=== PATIENT | male | born 1955 | race Caucasian/White ===

== ENCOUNTER 2021-08-22 13:56 | Inpatient (IN) | payer MEDICARE, OTHER ==
[~2021-08-22] VITALS: Ht 180.3 cm; Wt 159.7 kg
[2021-08-22] MEDS ORDERED: ACETAMINOPHEN 325 MG TABLET PO ONE (14:15)
[2021-08-22] MEDS ORDERED: VANCOMYCIN IV 1,000 MG in IV DEXTROSE 5% 250 ML IV ONE (14:15)
[2021-08-22] MEDS ORDERED: CEFEPIME HCL 1 G in IV DEXTROSE 5% 50 ML IV ONE (14:15)
[2021-08-22] MEDS ORDERED: IV NORMAL SALINE 1000 ML BAG IV ONE ×2 (14:15→15:30)
[2021-08-22] MEDS ORDERED: CEFEPIME HCL 1 G VIAL ONE (14:38)
[2021-08-22] MEDS ORDERED: ACETAMINOPHEN 325 MG TABLET ONE (14:38)
[2021-08-22] MEDS ORDERED: VANCOMYCIN IV 200 ML ONE (14:39)
[2021-08-22 14:43] LABS: HEMATOCRIT 44.1 % (36.7-47.1); MEAN CORPUSCULAR HEMOGLOBIN 30.4 uug (23.8-33.4); MEAN CORPUSCULAR VOLUME 90.5 fL (73.0-96.2); PLATELET COUNT (AUTO) 162 K/uL (152-348)
--- NOTE | 2021-08-22 14:46 | NUR ---
PT TO CT VIA AKIRA COHEN NOTED.
[2021-08-22 14:47] LABS: POTASSIUM 3.7 mmol/L (3.5-5.1)
[2021-08-22 14:53] LABS: BILIRUBIN,DIRECT 0.2 mg/dL (0.0-0.2); BILIRUBIN,TOTAL 0.8 mg/dL (0.2-1.0); TOTAL PROTEIN, SERUM 7.3 g/dL (6.4-8.2)
[2021-08-22 15:20] LABS: *BILIRUBIN,URIN NEGATIVE (NEGATIVE); *BLOOD, URINE 2+ (NEGATIVE); *COLOR,URINE YELLOW (YELLOW); *KETONES,URINE 2+ (NEGATIVE); LEUKOCYTE ESTERASE ,URINE NEGATIVE (NEGATIVE); NITRITE, URINE NEGATIVE (NEGATIVE)
[2021-08-22 15:21] LABS: UGLUCOSE 3+ (NEGATIVE)
[2021-08-22] MEDS ORDERED: TELM40TA2 PO (15:22)
[2021-08-22] MEDS ORDERED: INSU100I26 SQ (15:22)
[2021-08-22] MEDS ORDERED: METF-442 PO (15:22)
[2021-08-22] MEDS ORDERED: IRBE75TA11 PO (15:22)
[2021-08-22] MEDS ORDERED: INSU100I34 SQ (15:22)
[2021-08-22] MEDS ORDERED: ATOR20TA PO (15:22)
[2021-08-22] MEDS ORDERED: HYDR25TA4 PO (15:22)
[2021-08-22] MEDS ORDERED: GLIP5TAB13 PO (15:22)
[2021-08-22] MEDS ORDERED: ERTU5TAB PO (15:22)
[2021-08-22 15:25] LABS: *CLARITY,URINE HAZY (CLEAR); RBC,URINE 20-50 /HPF (0-3)
[2021-08-22 15:28] LABS: BACTERIA,URINE FEW /HPF (NONE SEEN); SQUAMOUS EPITHELIAL CELL,UR FEW /HPF (NONE SEEN); WBC,URINE 50-80 /HPF (0-3); YEAST,URINE FEW /HPF (NONE SEEN)
--- NOTE | 2021-08-22 16:00 | NUR ---
spoke with , pt has been accpeted for tele admission. Called for tele bed assignment, charge nurse to call back.
--- NOTE | 2021-08-22 18:00 | NUR ---
Pt sleeping with NAD noted. SBAR report given to CRISTOPHER Harrell.
--- NOTE | 2021-08-22 19:28 | NUR ---
Transfered to 3rd floor via gurny with no distress.
[2021-08-22] MEDS ORDERED: TEMAZEPAM 15 MG CAPSULE PO PRN (19:30)
[2021-08-22] MEDS ORDERED: MAGNESIUM HYDROXIDE 30 ML LIQUID UDC PO PRN (19:30)
[2021-08-22] MEDS ORDERED: ALBUTEROL SULFATE 2.5 MG/ 0.5 ML NEBU NEB PRN (19:30)
[2021-08-22] MEDS ORDERED: HYDROCODONE/APAP 5-325MG TABLET PO PRN (19:30)
[2021-08-22] MEDS ORDERED: ONDANSETRON 4 MG/2 ML VIAL IV PRN (19:30)
--- NOTE | 2021-08-22 19:35 | NUR ---
RECEIVED PT FROM ER VIA [facility]. DX: UTI/SEPSIS. UNDER THE CARE OF DR. RICE. BELONGING LIST DONE. PT IN NO ACUTE DISTRESS. PT ON ROOM AIR. IV INTACT. ADMISSION PROCESS AND CARE PLAN INITIATED. SAEFTY AND COMFORT PROVIDED. WILL CONTINUE TO MONITOR.
[2021-08-22] MEDS ORDERED: CEFTRIAXONE 1 G in IV DEXTROSE 5% 50 ML IV SCH (20:00)
[2021-08-22 20:06] VITALS: BP 132/71
[2021-08-22] MEDS ORDERED: IV 1/2NS 1000 ML 1,000 ML IV ONE (20:15)
[2021-08-22] MEDS ORDERED: ENALAPRILAT DIHYDRATE 1.25 MG/1 ML VIAL IV PRN (20:15)
[2021-08-22] MEDS ORDERED: DEXTROSE 50% 50 ML DISP.SYRIN IV PRN (20:15)
[2021-08-22] MEDS: DOCUSATE SODIUM 100 MG CAPSULE PO SCH (20:55)
[2021-08-22] MEDS: ATORVASTATIN 20 MG TABLET PO SCH (20:55)
[2021-08-22] MEDS: ACETAMINOPHEN 325 MG TABLET PO PRN (20:55)
--- NOTE | 2021-08-22 20:55 | NUR ---
AT 2054H TYLENOL 650 MG PRN WAS GIVEN FOR PT FOR FEVER. COOLING MEASURES DONE. WILL CONTINUE TO MONITOR.
--- NOTE | 2021-08-22 20:55 | NUR ---
TU Addendum: 08/23/21 at 0230 by MARYLOU LORENZO RN WRONG DOCUMENTATION
[2021-08-22] MEDS: BLOOD SUGAR DIAGNOSTIC 1 EACH STRIP VI SCH (20:59)
[2021-08-22] MEDS ORDERED: DOCUSATE SODIUM 250 MG CAPSULE PO SCH (21:00)
[2021-08-22] MEDS: INSULIN REGULAR, HUMAN 300 UNIT/3 ML VIAL SQ PRN (21:18)
[2021-08-22] MEDS: ENOXAPARIN SODIUM 40 MG/0.4 ML DISP.SYRIN SQ SCH (21:20)
[2021-08-22] MEDS: FLUCONAZOLE 200 MG/NS 100ML IV 100 MG in PREMIXED 1 EACH IV SCH (21:20)
[2021-08-22] MEDS ORDERED: PIPERACILLIN SODIUM/TAZOBACTAM 3.375 G in IV DEXTROSE 5% 50 ML IV SCH (22:00)
[2021-08-22] MEDS: PIPERACILLIN SODIUM/TAZOBACTAM 3.375 G in IV DEXTROSE 5% 50 ML IV SCH (22:48)
[2021-08-22] MEDS ORDERED: PIPERACILLIN/TAZOBACTAM/D5W 100 ML IV ONE (22:49)
[2021-08-23] VITALS: BP 105/58
[2021-08-23 04:03] VITALS: BP 104/72
[2021-08-23] MEDS: PIPERACILLIN SODIUM/TAZOBACTAM 3.375 G in IV DEXTROSE 5% 50 ML IV SCH (05:15)
--- NOTE | 2021-08-23 06:00 | NUR ---
BLADDER SCAN RESULT 0 . NO RETENTION AFTER URINATION. PT STATED :"I DON'T HAVE PROBLEM URINATING."
--- NOTE | 2021-08-23 06:16 | NUR ---
PT SLEPT INTERMITTENTLY. PT IN NO ACUTE DISTRESS. PRESCRIBED MEDICATION GIVEN AND PT TOLERATED IT WELL. PT ON ROOM AIR. PT ON SINUS TACHYCARDIA.PT RECENT BLOOD SUGAR WAS 180. IV INTACT. SAFETY AND COMFORT PROVIDED. ALL NEEDS ARE MET. WILL ENDORSE TO INCOMING NURSE FOR CONTINUITY OF CARE.
[2021-08-23] MEDS: PANTOPRAZOLE SODIUM 40 MG TABLET.DR PO SCH (06:23)
[2021-08-23] MEDS: BLOOD SUGAR DIAGNOSTIC 1 EACH STRIP VI SCH ×4 (06:37→21:20)
[2021-08-23 07:06] LABS: HEMATOCRIT 40.8 % (36.7-47.1); MEAN CORPUSCULAR HEMOGLOBIN 30.4 uug (23.8-33.4); MEAN CORPUSCULAR VOLUME 92.5 fL (73.0-96.2); PLATELET COUNT (AUTO) 129 K/uL (152-348)
[2021-08-23 07:35] LABS: BILIRUBIN,TOTAL 0.8 mg/dL (0.2-1.0); CREATININE 0.9 mg/dL (0.6-1.3); MAGNESIUM 1.9 mg/dL (1.8-2.4); PHOSPHOROUS 3.1 mg/dL (2.5-4.9); POTASSIUM 3.6 mmol/L (3.5-5.1); TOTAL PROTEIN, SERUM 6.5 g/dL (6.4-8.2)
[2021-08-23 07:38] LABS: THYROID STIMULATING HORMONE 0.292 mIU/mL (0.358-3.740)
[2021-08-23] MEDS: INSULIN REGULAR, HUMAN 300 UNIT/3 ML VIAL SQ PRN ×4 (07:49→20:10)
--- NOTE | 2021-08-23 08:30 | NUR ---
PATIENT SEEN BY THE PHYSICAL THERAPY FOR EVALUATION AND HE WAS ABLE TO AMBULATE IN THE HALLWAY NOTED SOME HEAVY BREATHING RELATED TO PATIENT BEING OBESE BACK TO ROOM WITH NO SOB AT THIS TIME.
[2021-08-23] MEDS: METFORMIN HCL 500 MG TABLET PO SCH ×2 (08:41→17:22)
[2021-08-23] MEDS: glipiZIDE 5 MG TABLET PO SCH ×2 (08:41→17:22)
[2021-08-23] MEDS: LOSARTAN POTASSIUM 25 MG TABLET PO SCH (08:42)
[2021-08-23] MEDS: HYDROCHLOROTHIAZIDE 25 MG TABLET PO SCH (08:42)
[2021-08-23] MEDS ORDERED: Medication Not On Formulary EA (Telmisartan (Micardis) 1 TAB) PO SCH (09:00)
[2021-08-23] MEDS ORDERED: Medication Not On Formulary EA (Irbesartan (Avapro) 75 MG) PO SCH (09:00)
--- NOTE | 2021-08-23 09:16 | NUR ---
PATIENT HAS POOR VEINOUS ACCESS AND ON IV ANTIBIOTICS MD NOTIFIED WITH ORDER TO INSERT A MID LINE NURSING SUP AWARE AND THE MIDLINE NURSE IS HERE
--- NOTE | 2021-08-23 09:28 | NUR ---
MID SUCCESSFULLY INSERTED TO HIS RIGHT UPPER ARM GAUGE 18 FLUSHED PER PROTOCOL TOLERATED PROCEDURE WELL.
[2021-08-23 11:39] VITALS: BP 125/75
[2021-08-23] MEDS: ACETAMINOPHEN 325 MG TABLET PO PRN ×2 (12:12→19:56)
--- NOTE | 2021-08-23 12:12 | NUR ---
TEMP AT THIS TIME IS 100.1 MEDICATED WITH TYLENOL FOR BODY ACHES ENCOURAGED INCREASED FLUID INTAKE MADE COMFORTABLE AND WILL CONTINUE TO OBSERVE.
[2021-08-23] MEDS: PIPERACILLIN SODIUM/TAZOBACTAM 3.375 G in IV DEXTROSE 5% 100 ML IV SCH ×2 (13:26→22:54)
[2021-08-23 16:03] VITALS: BP 101/63
--- NOTE | 2021-08-23 16:52 | NUR ---
PATIENT SEEN AND EXAMINED BY DR DONY GIPSON WITH NEW ORDERS AND NOTED.
--- NOTE | 2021-08-23 18:00 | NUR ---
PATIENT IN BED, COMFORTABLE. IN NO ACUTE DISTRESS. RECEIVED ABX VIA RIGHT UPPER ARM MIDLINE OVER 4 HOURS, NO ADVERSE REACTIONS. PATIENT ABLE TO MAKE NEEDS KNOWN. GOOD PO INTAKE. BRP.
[2021-08-23] MEDS: FLUCONAZOLE 200 MG/NS 100ML IV 100 MG in PREMIXED 1 EACH IV SCH (19:46)
[2021-08-23] MEDS: ENOXAPARIN SODIUM 40 MG/0.4 ML DISP.SYRIN SQ SCH (19:54)
--- NOTE | 2021-08-23 19:56 | NUR ---
TYLENOL PRN GIVEN FOR 100.5 TEMPERATURE. COOLING MEASURES DONE.
[2021-08-23 20:00] VITALS: BP 139/85
[2021-08-23] MEDS: ATORVASTATIN 20 MG TABLET PO SCH (20:00)
[2021-08-23] MEDS: DOCUSATE SODIUM 100 MG CAPSULE PO SCH (20:01)
[2021-08-24] VITALS: BP 130/81
[2021-08-24 04:00] VITALS: BP 137/80
[2021-08-24] MEDS: PIPERACILLIN SODIUM/TAZOBACTAM 3.375 G in IV DEXTROSE 5% 100 ML IV SCH ×3 (05:23→22:16)
[2021-08-24] MEDS: PANTOPRAZOLE SODIUM 40 MG TABLET.DR PO SCH (06:22)
[2021-08-24] MEDS: BLOOD SUGAR DIAGNOSTIC 1 EACH STRIP VI SCH ×4 (06:30→20:52)
--- NOTE | 2021-08-24 06:35 | NUR ---
PT SLEPT INTERMITTENTLY. PT IN NO ACUTE DISTRESS. PRESCRIBED MEDICATION GIVEN AND PT TOLERATED IT WELL. PT ON SINUS RHYTHM AND SOMETIMES SINUS TACHYCARDIA. SAFETY AND COMFORT PROVIDED. WILL CONTINUE TO MONITOR.
[2021-08-24 06:41] LABS: HEMATOCRIT 38.1 % (36.7-47.1); MEAN CORPUSCULAR HEMOGLOBIN 30.7 uug (23.8-33.4); MEAN CORPUSCULAR VOLUME 91.3 fL (73.0-96.2); PLATELET COUNT (AUTO) 120 K/uL (152-348)
[2021-08-24 06:58] LABS: CREATININE 0.9 mg/dL (0.6-1.3); MAGNESIUM 1.8 mg/dL (1.8-2.4); PHOSPHOROUS 2.5 mg/dL (2.5-4.9); POTASSIUM 3.5 mmol/L (3.5-5.1)
--- NOTE | 2021-08-24 07:15 | NUR ---
RECEIVED PATIENT IN BED SLEEPING SEEMS COMFORTABLE AT THIS TIME PER REPORT PATIENTS MID LINE WAS FOUND OUT LAST NITE BUT HE STILL HAS HIS PERIPHERAL LINE ON HIS LEFT HAND AND HAS HIS IV ATB INFUSING ORDERED WITH NO ADVERSE OR ALLERGIC REACTIONS AT THIS TIME CALL LIGHTS AND PERSONAL BELONGINGS ARE WITHIN EASY REACH AT THIS TIME WILL CONTINUE TO OBSERVE.
[2021-08-24] MEDS: INSULIN REGULAR, HUMAN 300 UNIT/3 ML VIAL SQ PRN ×4 (07:53→20:50)
[2021-08-24 08:22] LABS: NEUTROPHILS % (MANUAL) 0 % (42-75)
[2021-08-24] MEDS: METFORMIN HCL 500 MG TABLET PO SCH ×2 (08:36→17:22)
[2021-08-24] MEDS: glipiZIDE 5 MG TABLET PO SCH ×2 (08:36→17:22)
[2021-08-24] MEDS: HYDROCHLOROTHIAZIDE 25 MG TABLET PO SCH (08:37)
[2021-08-24] MEDS: LOSARTAN POTASSIUM 25 MG TABLET PO SCH (08:37)
[2021-08-24 11:52] VITALS: BP 131/80
--- NOTE | 2021-08-24 14:30 | NUR ---
SEEN AND EXAMINED BY DR DONY GIPSON WITH NEW ORDERS AND NOTED
[2021-08-24 15:38] VITALS: BP 120/81
[2021-08-24] MEDS: FLUCONAZOLE 200 MG/NS 100ML IV 100 MG in PREMIXED 1 EACH IV SCH (19:30)
[2021-08-24] MEDS: ENOXAPARIN SODIUM 40 MG/0.4 ML DISP.SYRIN SQ SCH (19:54)
[2021-08-24] MEDS: DOCUSATE SODIUM 100 MG CAPSULE PO SCH (20:11)
[2021-08-24] MEDS: ATORVASTATIN 20 MG TABLET PO SCH (20:12)
[2021-08-24 20:15] VITALS: BP 114/75
--- NOTE | 2021-08-24 21:53 | NUR ---
REMAIN ON ATB ORDERED WITH NO ADVERSE OR ALLERGIC REACTIONS AT THIS TIME ALERT AND ORIENTED DENIES DISCOMFORTS WILL CONTINUE TO OBSERVE.
[2021-08-25 04:15] VITALS: BP 100/52
[2021-08-25] MEDS: PIPERACILLIN SODIUM/TAZOBACTAM 3.375 G in IV DEXTROSE 5% 100 ML IV SCH (05:19)
--- NOTE | 2021-08-25 06:00 | NUR ---
AFEBRILE DENIES DISCOMFORTS REMAIN ON ATB ORDERED WITH NO ADVERSE OR ALLERGIC REACTIONS AT THIS TIME ON ROOM AIR WITH NO SHORTNESS OF BREATH AT THIS TIME WILL CONTINUE TO OBSERVE
[2021-08-25] MEDS: PANTOPRAZOLE SODIUM 40 MG TABLET.DR PO SCH (06:27)
[2021-08-25] MEDS: BLOOD SUGAR DIAGNOSTIC 1 EACH STRIP VI SCH ×2 (06:27→12:09)
[2021-08-25 06:52] LABS: HEMATOCRIT 40.6 % (36.7-47.1); MEAN CORPUSCULAR HEMOGLOBIN 30.1 uug (23.8-33.4); MEAN CORPUSCULAR VOLUME 91.3 fL (73.0-96.2); PLATELET COUNT (AUTO) 160 K/uL (152-348)
[2021-08-25 07:28] LABS: CREATININE 0.8 mg/dL (0.6-1.3); MAGNESIUM 1.9 mg/dL (1.8-2.4); PHOSPHOROUS 3.4 mg/dL (2.5-4.9); POTASSIUM 3.7 mmol/L (3.5-5.1)
[2021-08-25] MEDS: METFORMIN HCL 500 MG TABLET PO SCH (08:26)
[2021-08-25] MEDS: glipiZIDE 5 MG TABLET PO SCH (08:28)
[2021-08-25] MEDS: HYDROCHLOROTHIAZIDE 25 MG TABLET PO SCH (08:29)
[2021-08-25] MEDS: INSULIN REGULAR, HUMAN 300 UNIT/3 ML VIAL SQ PRN ×2 (08:36→12:11)
[2021-08-25] MEDS: LOSARTAN POTASSIUM 25 MG TABLET PO SCH (09:45)
[2021-08-25 12:00] VITALS: BP 100/69
[2021-08-25 12:54] LABS: NEUTROPHILS % (MANUAL) 0 % (42-75)
[2021-08-25] MEDS ORDERED: LEVO750T46 PO (13:00)
--- NOTE | 2021-08-25 15:08 | NUR ---
Patient d/c home, transported home via private transportation. Vital signs stable upon discharge. Left hand 20 gauge hep-lock removed. Tip intact. No signs of infection or bleeding noted. Patient education provided. All belongings gathered and sent with patient.
[2021-08-25] MEDS ORDERED: FLUCONAZOLE 100 MG TABLET PO SCH (20:00)
== END 2021-08-25 15:05 | disposition home or self-care (01) | DRG 872 ==
LOC: ER 13:56 → TELE3 19:18 → MEDSURG3 08-24 10:41
PROVIDERS: ADMIT Internal Medicine; ATTEND Hospitalist
PROC: 05H533Z Insertion of Infusion Device into Right Subclavian Vein, Percutaneous Approach (ICD-10-PCS; principal; 2021-08-23)
PROC: B546ZZA Ultrasonography of Right Subclavian Vein, Guidance (ICD-10-PCS; 2021-08-23)
DX: A41.9 Sepsis, unspecified organism (principal); B37.49 Other urogenital candidiasis; Z68.42 Body mass index [BMI] 45.0-49.9, adult; N39.0 Urinary tract infection, site not specified; E66.01 Morbid (severe) obesity due to excess calories; E78.5 Hyperlipidemia, unspecified; I10 Essential (primary) hypertension; Z20.822 Contact with and (suspected) exposure to COVID-19; Z79.4 Long term (current) use of insulin; Z79.84 Long term (current) use of oral hypoglycemic drugs; Z71.3 Dietary counseling and surveillance; K40.20 Bilateral inguinal hernia, without obstruction or gangrene, not specified as recurrent; B96.89 Other specified bacterial agents as the cause of diseases classified elsewhere; E11.65 Type 2 diabetes mellitus with hyperglycemia
CPT/HCPCS: 36415; 70030-TC; 71045; 83605; 83735; 84100; 84153; 84443; 85025; 85730; 87040; 87086; 93005; 93307; 97161; A4663; G0378; J0692; J0696; J1450; J1650; J1815; J2543; J3370; J3490; J7030; J7050; J7060